=== PATIENT | male | born 1965 | race Caucasian/White ===

== ENCOUNTER 2016-11-26 08:43 | Emergency (ER) | payer MEDICARE, MEDICAID ==
[~2016-11-26] VITALS: Ht 182.9 cm; Wt 66.1 kg
[~2016-11-26 08:43] MED LIST: OXYC-229 PO
[2016-11-26] MEDS ORDERED: OXYcodone/APAP 5/325MG TABLET ONE (09:44)
[2016-11-26] MEDS ORDERED: OXYcodone/APAP 5/325MG TABLET PO ONE (10:00)
[2016-11-26] MEDS ORDERED: ONDANSETRON ODT 4 MG ONE (10:02)
[2016-11-26 10:07] VITALS: BP 120/80
[2016-11-26] MEDS ORDERED: ONDANSETRON ODT 4 MG PO ONE (10:30)
== END 2016-11-26 11:27 | disposition home or self-care (01) ==
LOC: ED 09:08
DX: M48.32 Traumatic spondylopathy, cervical region (principal); M54.2 Cervicalgia; M54.9 Dorsalgia, unspecified; M25.559 Pain in unspecified hip; G89.29 Other chronic pain; Z85.9 Personal history of malignant neoplasm, unspecified; F17.210 Nicotine dependence, cigarettes, uncomplicated; F15.10 Other stimulant abuse, uncomplicated
CPT/HCPCS: 72125; 99284; Q0162

== ENCOUNTER 2016-12-24 09:44 | Emergency (ER) | payer MEDICARE, MEDICAID ==
[~2016-12-24] VITALS: Ht 182.9 cm; Wt 65.0 kg
[2016-12-24] MEDS ORDERED: SODIUM CHLORIDE 0.9% 1,000 ML IV ONE (09:59)
[2016-12-24] MEDS ORDERED: SODIUM CHLORIDE 0.9% 1,000ML IVBOLUS ONE (10:00)
[2016-12-24] MEDS ORDERED: ONDANSETRON 2MG/ML, 2ML IVPush ONE (10:00)
[2016-12-24] MEDS ORDERED: ASPIRIN 81 MG TABLET CHEW PO ONE (10:00)
[2016-12-24] MEDS ORDERED: ASPIRIN 81 MG TABLET CHEW ONE (10:46)
[2016-12-24] MEDS ORDERED: ONDANSETRON 2MG/ML, 2ML ONE (10:47)
[2016-12-24 10:55] VITALS: BP 106/64
[2016-12-24 10:58] LABS: BLOOD UREA NITROGEN 13 mg/dL (7-18)
[2016-12-24 11:05] LABS: IS PT STATUS REG ER OR PRE ER? YES
== END 2016-12-24 11:24 | disposition left against medical advice (07) ==
LOC: ED 10:03
DX: R42 Dizziness and giddiness (principal); M19.90 Unspecified osteoarthritis, unspecified site; B18.2 Chronic viral hepatitis C; F17.200 Nicotine dependence, unspecified, uncomplicated; Z85.9 Personal history of malignant neoplasm, unspecified
CPT/HCPCS: 36415; 71010; 80048; 80307; 82040; 84484; 85025; 93005; 96361; 96374; 99285; J2405; J7030

== ENCOUNTER 2016-12-25 18:13 | Emergency (ER) | payer MEDICARE, MEDICAID ==
[~2016-12-25] VITALS: Ht 182.9 cm; Wt 71.3 kg
[2016-12-25 18:15] VITALS: BP 120/75
[2016-12-25] MEDS ORDERED: CIPROFLOXACIN 500 MG TABLET ONE (21:13)
== END 2016-12-25 19:04 | disposition left against medical advice (07) ==
LOC: ED 18:58
DX: Z00.00 Encounter for general adult medical examination without abnormal findings (principal); E11.9 Type 2 diabetes mellitus without complications; M54.9 Dorsalgia, unspecified; G89.29 Other chronic pain; B18.2 Chronic viral hepatitis C; F17.200 Nicotine dependence, unspecified, uncomplicated
CPT/HCPCS: 99281

== ENCOUNTER 2017-02-05 17:40 | Emergency (ER) | payer MEDICARE, MEDICAID ==
[~2017-02-05] VITALS: Ht 182.9 cm; Wt 63.8 kg
[2017-02-05] MEDS ORDERED: ONDANSETRON 2MG/ML, 2ML IVPush ONE (18:30)
[2017-02-05] MEDS ORDERED: SODIUM CHLORIDE FLUSH 10ML SYR IVF ONE (18:30)
[2017-02-05] MEDS ORDERED: SODIUM CHLORIDE 0.9% 1,000ML IVBOLUS ONE (18:30)
[2017-02-05] MEDS ORDERED: ONDANSETRON 2MG/ML, 2ML ONE (18:35)
[2017-02-05 19:03] LABS: IS PT STATUS REG ER OR PRE ER? YES
[2017-02-05 19:29] LABS: ASPARTATE AMINO TRANSFERASE 56 U/L (15-37); BLOOD UREA NITROGEN 10 mg/dL (7-18)
[2017-02-05 19:51] VITALS: BP 113/72
== END 2017-02-05 20:49 | disposition home or self-care (01) ==
LOC: ED 20:00
DX: R19.7 Diarrhea, unspecified (principal); R05 Cough; I10 Essential (primary) hypertension; Z87.891 Personal history of nicotine dependence
CPT/HCPCS: 36415; 71010; 76700; 80053; 83690; 84484; 85025; 93005; 96361; 96374; 99285; J2405; J7030

== ENCOUNTER 2017-02-06 04:23 | Emergency (ER) | payer MEDICARE, MEDICAID ==
[~2017-02-06] VITALS: Ht 182.9 cm; Wt 64.9 kg
[2017-02-06 04:24] VITALS: BP 117/75
== END 2017-02-06 05:53 | disposition left against medical advice (07) ==
LOC: ED 05:50
DX: R42 Dizziness and giddiness (principal); Z53.21 Procedure and treatment not carried out due to patient leaving prior to being seen by health care provider
CPT/HCPCS: 93005

== ENCOUNTER 2017-03-22 12:12 | Emergency (ER) | payer MEDICARE, MEDICAID ==
[~2017-03-22] VITALS: Ht 180.3 cm; Wt 59.0 kg
[2017-03-22] MEDS ORDERED: OXYC-302 PO (12:26)
[2017-03-22 12:59] LABS: HEMOGLOBIN 13.8 g/dL (13.7-18.0); WHITE BLOOD COUNT 5.7 x10^3/uL (3.4-10)
[2017-03-22] MEDS ORDERED: ASPIRIN 81 MG TABLET CHEW PO ONE (13:00)
[2017-03-22] MEDS ORDERED: NITROGLYCERIN SINGLE TAB 0.4 MG SL PRN (13:00)
[2017-03-22] MEDS ORDERED: SODIUM CHLORIDE FLUSH 10ML SYR IVF ONE (13:00)
[2017-03-22 13:11] LABS: BLOOD UREA NITROGEN 6 mg/dL (7-18)
[2017-03-22] MEDS ORDERED: OMNIPAQUE 350 MG/ML, 100ML BOTTLE ONE (13:44)
[2017-03-22] MEDS ORDERED: NITROGLYCERIN SINGLE TAB 0.4 MG SL ONE (14:05)
[2017-03-22 14:11] VITALS: BP 107/58
== END 2017-03-22 14:50 | disposition left against medical advice (07) ==
LOC: ED 14:06
DX: R07.2 Precordial pain (principal); E11.9 Type 2 diabetes mellitus without complications; I10 Essential (primary) hypertension; I25.2 Old myocardial infarction; M19.90 Unspecified osteoarthritis, unspecified site
CPT/HCPCS: 36415; 71010; 74177; 80047; 80048; 82040; 82565; 83880; 84484; 85025; 85610; 85730; 93005; 99285; Q9967

== ENCOUNTER 2017-07-28 06:32 | Emergency (ER) | payer MEDICARE, MEDICAID ==
[~2017-07-28] VITALS: Ht 182.9 cm; Wt 67.0 kg
[~2017-07-28 06:32] MED LIST changes: -OXYC-229 PO; +OXYC-302 PO; +OXYC-307 PO
[2017-07-28 07:22] LABS: HEMATOCRIT 47.1 % (39.2-51.8); HEMOGLOBIN 15.5 g/dL (13.7-18.0); WHITE BLOOD COUNT 9.7 x10^3/uL (3.4-10)
[2017-07-28 07:32] LABS: BLOOD UREA NITROGEN 15 mg/dL (7-18)
== END 2017-07-28 09:31 | disposition home or self-care (01) ==
LOC: ED 07:35
DX: L01.01 Non-bullous impetigo (principal); B00.1 Herpesviral vesicular dermatitis; I25.2 Old myocardial infarction; Z86.19 Personal history of other infectious and parasitic diseases
CPT/HCPCS: 36415; 80048; 82040; 85025; 99284

== ENCOUNTER 2017-10-15 19:46 | Emergency (ER) | payer MEDICARE, MEDICAID ==
[~2017-10-15] VITALS: Ht 175.3 cm; Wt 66.4 kg
[2017-10-15 19:57] VITALS: BP 105/72
== END 2017-10-15 23:12 | disposition home or self-care (01) ==
LOC: ED 23:06
DX: S62.634A Displaced fracture of distal phalanx of right ring finger, initial encounter for closed fracture (principal); S61.214A Laceration without foreign body of right ring finger without damage to nail, initial encounter; I10 Essential (primary) hypertension; E11.9 Type 2 diabetes mellitus without complications; I25.2 Old myocardial infarction; W19.XXXA Unspecified fall, initial encounter; Y93.89 Activity, other specified; Y92.89 Other specified places as the place of occurrence of the external cause; Y99.8 Other external cause status
CPT/HCPCS: 29125; 99284

== ENCOUNTER 2017-10-20 00:42 | Emergency (ER) | payer MEDICARE, MEDICAID ==
[~2017-10-20] VITALS: Ht 167.6 cm; Wt 64.6 kg
[2017-10-20 00:44] VITALS: BP 120/70
[2017-10-20] MEDS ORDERED: KETOROLAC 30 MG/1 ML IM ONE (01:30)
[2017-10-20] MEDS ORDERED: KETOROLAC 30 MG/1 ML ONE (01:34)
[2017-10-20] MEDS ORDERED: BACITRACIN ZINC OINT 500U/GM, 0.9 GM ONE (01:43)
== END 2017-10-20 02:03 | disposition home or self-care (01) ==
LOC: ED 01:46
DX: S61.215A Laceration without foreign body of left ring finger without damage to nail, initial encounter (principal); I10 Essential (primary) hypertension; E11.9 Type 2 diabetes mellitus without complications; F17.210 Nicotine dependence, cigarettes, uncomplicated; I25.2 Old myocardial infarction; Z88.5 Allergy status to narcotic agent; W19.XXXA Unspecified fall, initial encounter; Y93.89 Activity, other specified; Y92.89 Other specified places as the place of occurrence of the external cause; Y99.8 Other external cause status
CPT/HCPCS: 29130; 96372; 99283; J1885

== ENCOUNTER 2017-11-04 18:39 | Emergency (ER) | payer MEDICARE, MEDICAID ==
[~2017-11-04] VITALS: Ht 180.3 cm; Wt 64.7 kg
[2017-11-04 18:41] VITALS: BP 113/72
[2017-11-04] MEDS ORDERED: IBUPROFEN 200 MG TABLET ONE (19:22)
[2017-11-04] MEDS ORDERED: IBUPROFEN 200 MG TABLET PO ONE (19:30)
== END 2017-11-04 20:03 | disposition home or self-care (01) ==
LOC: ED 19:05
DX: S62.634A Displaced fracture of distal phalanx of right ring finger, initial encounter for closed fracture (principal); W00.0XXA Fall on same level due to ice and snow, initial encounter; Y93.89 Activity, other specified; Y99.8 Other external cause status; Y92.89 Other specified places as the place of occurrence of the external cause
CPT/HCPCS: 29130; 99284

== ENCOUNTER 2018-07-10 08:05 | Emergency (ER) | payer MEDICARE, MEDICAID ==
[~2018-07-10] VITALS: Ht 182.9 cm; Wt 59.0 kg
[2018-07-10] MEDS ORDERED: ONDANSETRON 2MG/ML, 2ML IVPush ONE (09:00)
[2018-07-10] MEDS ORDERED: MAALOX/HYOSCYAMINE/LIDOCAINE 45 ML BTL PO ONE (09:00)
[2018-07-10] MEDS ORDERED: MAALOX/HYOSCYAMINE/LIDOCAINE 45 ML BTL ONE (09:11)
[2018-07-10] MEDS ORDERED: ONDANSETRON ODT 4 MG ONE (09:11)
[2018-07-10 09:26] LABS: BASOPHILS # (AUTO) 0.03 x10^3/uL (0-0.1); BASOPHILS % (AUTO) 0 % (0-1); EOSINOPHILS # (AUTO) 0.19 x10^3/uL (0-0.4); EOSINOPHILS % (AUTO) 2 % (1-7); LYMPHOCYTES # (AUTO) 0.92 x10^3/uL (1-3.4); LYMPHOCYTES % (AUTO) 10 % (22-44); MD NO; MEAN CORPUSCULAR HEMOGLOBIN 27.8 pg (27.5-34.5); MEAN CORPUSCULAR HGB CONC 32.6 g/dL (33.2-36.2); MEAN CORPUSCULAR VOLUME 85.4 fL (81-97); MEAN PLATELET VOLUME 8.1 fL (7.4-10.4); MONOCYTES # (AUTO) 0.64 x10^3/uL (0.2-0.8); MONOCYTES % (AUTO) 7 % (2-9); NEUTROPHILS # (AUTO) 7.91 x10^3/uL (1.8-6.8); NEUTROPHILS % (AUTO) 82 % (42-75); PLATELET COUNT 293 x10^3/uL (130-400); RED BLOOD COUNT 5.13 x10^6/uL (4.38-5.82); RED CELL DISTRIBUTION WIDTH 13.8 % (9.4-14.8)
[2018-07-10] MEDS ORDERED: ONDANSETRON ODT 4 MG PO ONE (09:30)
[2018-07-10 09:34] LABS: ALANINE AMINOTRANSFERASE 47 U/L (12-78); ALBUMIN 3.3 g/dL (3.4-5.0); ANION GAP 6 mmol/L (5-15); CALCIUM 7.7 mg/dL (8.5-10.1); CHLORIDE 107 mmol/L (98-107)
[2018-07-10 09:37] LABS: ALKALINE PHOSPHATASE 85 U/L (45-117); BILIRUBIN,TOTAL 0.7 mg/dL (0.2-1.0); CREATININE 0.62 mg/dL (0.7-1.3); TOTAL PROTEIN 6.7 g/dL (6.4-8.2)
[2018-07-10 10:42] LABS: MICROSCOPIC NOT IND
[2018-07-10 10:50] LABS: CULTURE INDICATED? NO
[2018-07-10 12:40] VITALS: BP 120/64
== END 2018-07-10 12:43 | disposition home or self-care (01) ==
LOC: ED 10:47
DX: K29.00 Acute gastritis without bleeding (principal); E11.9 Type 2 diabetes mellitus without complications; I10 Essential (primary) hypertension; I25.2 Old myocardial infarction; F17.200 Nicotine dependence, unspecified, uncomplicated; Z86.19 Personal history of other infectious and parasitic diseases
CPT/HCPCS: 36415; 80053; 81003; 83605; 83690; 85025; 93005; 99284; Q0162

== ENCOUNTER 2018-07-19 07:44 | Emergency (ER) | payer MEDICARE, MEDICAID ==
[~2018-07-19] VITALS: Ht 182.9 cm; Wt 61.4 kg
[2018-07-19 07:46] VITALS: BP 116/77
[2018-07-19] MEDS ORDERED: KETOROLAC 30 MG/1 ML ONE (09:14)
[2018-07-19] MEDS ORDERED: KETOROLAC 30 MG/1 ML IVPush ONE (09:30)
== END 2018-07-19 10:15 | disposition home or self-care (01) ==
LOC: ED 09:42
DX: R07.9 Chest pain, unspecified (principal); R07.1 Chest pain on breathing; R05 Cough; C80.1 Malignant (primary) neoplasm, unspecified; I10 Essential (primary) hypertension; E11.9 Type 2 diabetes mellitus without complications; I25.2 Old myocardial infarction; G89.29 Other chronic pain; M25.552 Pain in left hip; M25.551 Pain in right hip; M54.9 Dorsalgia, unspecified; Z86.19 Personal history of other infectious and parasitic diseases
CPT/HCPCS: 71046; 93005; 96374; 99283; J1885

== ENCOUNTER 2018-09-01 17:19 | Emergency (ER) | payer MEDICARE, MEDICAID ==
[~2018-09-01] VITALS: Ht 182.9 cm; Wt 66.0 kg
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
--- NOTE | 2018-09-01 18:03 | NUR ---
EDMD AT BEDSIDE TO EXPLAIN POC AT THIS TIME.
[2018-09-01 18:23] LABS: BASOPHILS # (AUTO) 0.02 x10^3/uL (0-0.1); BASOPHILS % (AUTO) 0 % (0-1); EOSINOPHILS # (AUTO) 0.22 x10^3/uL (0-0.4); EOSINOPHILS % (AUTO) 4 % (1-7); LYMPHOCYTES # (AUTO) 1.56 x10^3/uL (1-3.4); LYMPHOCYTES % (AUTO) 25 % (22-44); MD NO; MEAN CORPUSCULAR HEMOGLOBIN 28.5 pg (27.5-34.5); MEAN CORPUSCULAR HGB CONC 32.7 g/dL (33.2-36.2); MEAN CORPUSCULAR VOLUME 87.2 fL (81-97); MEAN PLATELET VOLUME 8.6 fL (7.4-10.4); MONOCYTES # (AUTO) 0.62 x10^3/uL (0.2-0.8); MONOCYTES % (AUTO) 10 % (2-9); NEUTROPHILS # (AUTO) 3.76 x10^3/uL (1.8-6.8); NEUTROPHILS % (AUTO) 61 % (42-75); PLATELET COUNT 276 x10^3/uL (130-400); RED CELL DISTRIBUTION WIDTH 16.2 % (9.4-14.8)
[2018-09-01 18:32] LABS: ALBUMIN 3.2 g/dL (3.4-5.0); ANION GAP 9 mmol/L (5-15); CALCIUM 8.5 mg/dL (8.5-10.1); CHLORIDE 108 mmol/L (98-107); CREATININE 0.67 mg/dL (0.7-1.3)
[2018-09-01 18:36] LABS: TROPONIN I < 0.015 ng/mL (0.000-0.045)
--- NOTE | 2018-09-01 18:55 | NUR ---
WHEN EDMD AT BEDSIDE, PT C/O BILATERAL CP. ALL MONITORS IN PLACE NOW. CALL LIGHT WITHIN REACH. NSR ON DATA INTEGRATION DEVELOPER WITHOUT ECTOPY RATE 70'S AT THIS TIME.
--- NOTE | 2018-09-01 20:05 | NUR ---
Patient/Caregiver given discharge instructions and they have confirmed that they understand the instructions. Patient ambulatory with steady gait.
[2018-09-01 20:06] VITALS: BP 120/66
== END 2018-09-01 20:07 | disposition home or self-care (01) ==
LOC: ED 17:28
DX: R07.2 Precordial pain (principal); M19.90 Unspecified osteoarthritis, unspecified site; M54.9 Dorsalgia, unspecified; G89.29 Other chronic pain; I10 Essential (primary) hypertension; E11.9 Type 2 diabetes mellitus without complications; I25.2 Old myocardial infarction; Z86.19 Personal history of other infectious and parasitic diseases
CPT/HCPCS: 36415; 71045; 80048; 82040; 84484; 85025; 93005; 99284

== ENCOUNTER 2018-09-12 16:20 | Emergency (ER) | payer MEDICARE, MEDICAID ==
[~2018-09-12] VITALS: Ht 180.3 cm; Wt 68.5 kg
[2018-09-12 16:31] VITALS: BP 115/75
== END 2018-09-12 17:14 | disposition left against medical advice (07) ==
LOC: ED 17:08
DX: R10.9 Unspecified abdominal pain (principal); R11.2 Nausea with vomiting, unspecified
CPT/HCPCS: 93005; 99283

== ENCOUNTER 2018-09-26 14:32 | Inpatient (IN) | payer MEDICARE, MEDICAID ==
[~2018-09-26] VITALS: Ht 180.3 cm; Wt 62.3 kg
--- NOTE | 2018-09-26 14:58 | NUR ---
PT. ARRIVES BY [facility] WITH C/O CHEST WALL PAIN, SOB AND A COUGH. PT. WAS SEEN AT THE [facility] AND DIAGNOSED WITH PNEUMONIA. PT. DID NOT GET HIS PRESCRIPTIONS FILLED. PT. DOES SMOKE 1.5 PACKS OF CIGARETTES DAILY, HE DRINKS 1 PINT OF WHISKEY AND USES MARIJUANA MULTIPLE TIMES DAILY STATED BY HIM. PT. HAS THE CP MONITOR IN PLACE. IV ACCESS WAS ESTABLISHED IN THE FIELD. PT.'S SIDERAILS ARE UP 2 WITH THE CALL LIGHT IN PLACE. DR. OBREGON IS AT THE BEDSIDE TO EVALUATE THE PT.
[2018-09-26] MEDS ORDERED: ALBUTEROL/IPRATROPIUM 2.5MG/0.5MG, 3 ML NPPB ONE (15:00)
[2018-09-26] MEDS ORDERED: ASPIRIN 81 MG TABLET CHEW PO ONE (15:00)
[2018-09-26] MEDS ORDERED: SODIUM CHLORIDE FLUSH 10ML SYR IVF ONE (15:00)
[2018-09-26] MEDS ORDERED: ASPIRIN 81 MG TABLET CHEW ONE (15:04)
[2018-09-26 15:28] LABS: BASOPHILS # (AUTO) 0.06 x10^3/uL (0-0.1); BASOPHILS % (AUTO) 1 % (0-1); EOSINOPHILS # (AUTO) 0.19 x10^3/uL (0-0.4); EOSINOPHILS % (AUTO) 2 % (1-7); LYMPHOCYTES # (AUTO) 1.25 x10^3/uL (1-3.4); LYMPHOCYTES % (AUTO) 14 % (22-44); MD NO; MEAN CORPUSCULAR HEMOGLOBIN 27.5 pg (27.5-34.5); MEAN CORPUSCULAR HGB CONC 31.7 g/dL (33.2-36.2); MEAN CORPUSCULAR VOLUME 86.7 fL (81-97); MEAN PLATELET VOLUME 8.8 fL (7.4-10.4); MONOCYTES # (AUTO) 0.72 x10^3/uL (0.2-0.8); MONOCYTES % (AUTO) 8 % (2-9); NEUTROPHILS # (AUTO) 6.54 x10^3/uL (1.8-6.8); NEUTROPHILS % (AUTO) 75 % (42-75); PLATELET COUNT 287 x10^3/uL (130-400); RED BLOOD COUNT 5.17 x10^6/uL (4.38-5.82); RED CELL DISTRIBUTION WIDTH 15.8 % (9.4-14.8)
[2018-09-26 15:38] LABS: ALANINE AMINOTRANSFERASE 47 U/L (12-78); ALBUMIN 3.4 g/dL (3.4-5.0); ANION GAP 9 mmol/L (5-15); CALCIUM 8.2 mg/dL (8.5-10.1); CHLORIDE 108 mmol/L (98-107); CREATININE 0.67 mg/dL (0.7-1.3)
[2018-09-26 15:41] LABS: ALKALINE PHOSPHATASE 87 U/L (45-117); BILIRUBIN,TOTAL 0.4 mg/dL (0.2-1.0); TOTAL PROTEIN 6.7 g/dL (6.4-8.2); TROPONIN I < 0.015 ng/mL (0.000-0.045)
--- NOTE | 2018-09-26 15:43 | NUR ---
Igx-[id number]-[phone], Spouse-Mark RuizGwdstl-[phone]
--- NOTE | 2018-09-26 16:04 | NUR ---
PT. REMAINS MONITORED AND IS RESTING AT THIS TIME.
[2018-09-26] MEDS ORDERED: ALBUTEROL/IPRATROPIUM 2.5MG/0.5MG, 3 ML ONE (16:15)
[2018-09-26 16:30] LABS: RAPID INFLUENZA A Negative (Negative); RAPID INFLUENZA B Negative (Negative)
--- NOTE | 2018-09-26 16:56 | NUR ---
PT. REMAINS MONITORED. VSS. PT. HAS NO CONCERNS AT THIS TIME.
--- NOTE | 2018-09-26 18:04 | NUR ---
PT.'S SATS ARE 88% ON ROOM AIR.
[2018-09-26] MEDS ORDERED: SODIUM CHLORIDE FLUSH 10ML SYR IVF PRN (18:30)
--- NOTE | 2018-09-26 19:00 | NUR ---
REPORT GIVEN TO GABRIELA MOSES.
--- NOTE | 2018-09-26 19:02 | NUR ---
Bedside report from julian desir. admitting md at bedside
[2018-09-26] MEDS ORDERED: ENOXAPARIN 40 MG/0.4 ML SQ SCH (19:30)
[2018-09-26] MEDS ORDERED: LORazepam 2 MG/ML, 1ML IVPush PRN (19:30)
[2018-09-26] MEDS ORDERED: ONDANSETRON ODT 4 MG PO PRN (19:30)
[2018-09-26] MEDS ORDERED: ACETAMINOPHEN 325 MG TABLET PO PRN (19:30)
[2018-09-26] MEDS ORDERED: hydrALAzine 20 MG/ML, 1ML IVPush PRN (19:30)
[2018-09-26] MEDS ORDERED: LIDODERM 5% PATCH TD PRN (19:30)
[2018-09-26] MEDS ORDERED: NICOTINE 21 MG/24 HR PATCH.TD24 TD SCH (19:30)
[2018-09-26] MEDS ORDERED: GABAPENTIN 300 MG CAPSULE PO PRN (19:30)
[2018-09-26] MEDS ORDERED: DOCUSATE 100 MG CAPSULE PO PRN (19:30)
--- NOTE | 2018-09-26 20:18 | NUR ---
PT RESTING. PT WAITING FOR ROOM TO BE CLEANED. VSS. CALL LIGHT IN REACH
[2018-09-26 20:35] VITALS: BP 104/65
[2018-09-27 01:22] VITALS: BP 115/69
[2018-09-27] MEDS ORDERED: ALBUTEROL/IPRATROPIUM 2.5MG/0.5MG, 3 ML NPPB PRN (05:00)
[2018-09-27 06:42] LABS: BASOPHILS # (AUTO) 0.02 x10^3/uL (0-0.1); BASOPHILS % (AUTO) 0 % (0-1); EOSINOPHILS % (AUTO) 0 % (1-7); LYMPHOCYTES # (AUTO) 0.98 x10^3/uL (1-3.4); LYMPHOCYTES % (AUTO) 13 % (22-44); MD NO; MEAN CORPUSCULAR HEMOGLOBIN 27.7 pg (27.5-34.5); MEAN CORPUSCULAR HGB CONC 31.7 g/dL (33.2-36.2); MEAN CORPUSCULAR VOLUME 87.5 fL (81-97); MEAN PLATELET VOLUME 8.7 fL (7.4-10.4); MONOCYTES # (AUTO) 0.53 x10^3/uL (0.2-0.8); MONOCYTES % (AUTO) 7 % (2-9); NEUTROPHILS # (AUTO) 5.84 x10^3/uL (1.8-6.8); NEUTROPHILS % (AUTO) 79 % (42-75); PLATELET COUNT 273 x10^3/uL (130-400); RED BLOOD COUNT 5.19 x10^6/uL (4.38-5.82); RED CELL DISTRIBUTION WIDTH 15.8 % (9.4-14.8)
[2018-09-27 06:54] LABS: ANION GAP 6 mmol/L (5-15); CALCIUM 8.2 mg/dL (8.5-10.1); CHLORIDE 105 mmol/L (98-107); CREATININE 0.63 mg/dL (0.7-1.3)
[2018-09-27 07:16] VITALS: BP 120/73
[2018-09-27] MEDS ORDERED: MULTIVITAMINS/MINERALS TABLET PO SCH (09:00)
[2018-09-27] MEDS ORDERED: CHLORDIAZEPOXIDE 25 MG CAPSULE PO PRN ×2 (09:00)
[2018-09-27] MEDS ORDERED: FOLIC ACID 5 MG/ML IM ONE (09:00)
[2018-09-27] MEDS ORDERED: AMOXICILLIN/CLAV 875-125MG TABLET PO SCH (09:00)
[2018-09-27] MEDS ORDERED: CHLORDIAZEPOXIDE 10 MG CAPSULE PO PRN (09:00)
[2018-09-27] MEDS ORDERED: FOLIC ACID 1 MG TABLET PO ONE (10:00)
[2018-09-28] MEDS ORDERED: THIAMINE 100 MG in DEXTROSE 5% 50 ML IVPB SCH (09:00)
== END 2018-09-27 12:35 | disposition left against medical advice (07) | DRG 189 ==
LOC: ED 18:14 → EDIP 18:15 → ED 18:38 → 4EST 20:29
PROVIDERS: ADMIT Hospitalist; ATTEND Hospitalist
DX: J96.01 Acute respiratory failure with hypoxia (principal); J44.1 Chronic obstructive pulmonary disease with (acute) exacerbation; Z53.21 Procedure and treatment not carried out due to patient leaving prior to being seen by health care provider; E11.9 Type 2 diabetes mellitus without complications; E78.5 Hyperlipidemia, unspecified; F10.229 Alcohol dependence with intoxication, unspecified; G89.29 Other chronic pain; Y90.6 Blood alcohol level of 120-199 mg/100 ml; Z96.643 Presence of artificial hip joint, bilateral; I10 Essential (primary) hypertension; I25.2 Old myocardial infarction; Z59.0 Homelessness; Z88.5 Allergy status to narcotic agent
CPT/HCPCS: 36415; 71046; 80048; 80053; 80307; 83605; 83880; 84484; 85025; 87040; 87400; 93005; 94640; 99285; G0378; J1650; J7620; J2060; J7512

== ENCOUNTER 2018-09-27 13:33 | Emergency (ER) | payer MEDICARE, MEDICAID ==
[~2018-09-27] VITALS: Ht 180.3 cm; Wt 71.1 kg
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
--- NOTE | 2018-09-27 15:30 | NUR ---
Provider at bedside.
[2018-09-27 16:39] VITALS: BP 103/62
--- NOTE | 2018-09-27 16:45 | NUR ---
Patient given discharge instructions and they have confirmed that they understand the instructions. Patient ambulatory with steady gait.
== END 2018-09-27 16:48 | disposition home or self-care (01) ==
LOC: ED 13:40
DX: J44.1 Chronic obstructive pulmonary disease with (acute) exacerbation (principal); B34.9 Viral infection, unspecified; Z86.19 Personal history of other infectious and parasitic diseases; I10 Essential (primary) hypertension; E11.9 Type 2 diabetes mellitus without complications; M54.9 Dorsalgia, unspecified; G89.29 Other chronic pain; Z85.9 Personal history of malignant neoplasm, unspecified
CPT/HCPCS: 71045; 93005; 99283

== ENCOUNTER 2018-10-26 17:17 | Emergency (ER) | payer MEDICARE, MEDICAID ==
[~2018-10-26] VITALS: Ht 182.9 cm; Wt 69.5 kg
[2018-10-26 17:21] VITALS: BP 147/87
== END 2018-10-26 18:15 | disposition left against medical advice (07) ==
LOC: ED 17:39
DX: R21 Rash and other nonspecific skin eruption (principal); R11.10 Vomiting, unspecified; J44.9 Chronic obstructive pulmonary disease, unspecified; I25.2 Old myocardial infarction; Z86.19 Personal history of other infectious and parasitic diseases; Z72.9 Problem related to lifestyle, unspecified; Z85.9 Personal history of malignant neoplasm, unspecified; F17.200 Nicotine dependence, unspecified, uncomplicated
CPT/HCPCS: 99281

== ENCOUNTER 2018-11-30 12:10 | Emergency (ER) | payer MEDICARE, MEDICAID ==
[~2018-11-30] VITALS: Ht 182.9 cm; Wt 65.4 kg
[2018-11-30 12:13] VITALS: BP 144/83
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
--- NOTE | 2018-11-30 12:44 | NUR ---
Pt transported on gurney to imaging. All safety measures in place. JACQUE.
--- NOTE | 2018-11-30 13:14 | NUR ---
Pt transported [facility] All safety measures in place.
--- NOTE | 2018-11-30 14:11 | NUR ---
Patient given discharge instructions and they have confirmed that they understand the instructions. Patient ambulatory with steady gait. Pt left with prescription, discharge paperwork, and all personal belongings.
== END 2018-11-30 14:24 | disposition home or self-care (01) ==
LOC: ED 13:30
DX: S16.1XXA Strain of muscle, fascia and tendon at neck level, initial encounter (principal); S40.011A Contusion of right shoulder, initial encounter; S70.02XA Contusion of left hip, initial encounter; J44.9 Chronic obstructive pulmonary disease, unspecified; I25.2 Old myocardial infarction; I10 Essential (primary) hypertension; E11.9 Type 2 diabetes mellitus without complications; F17.200 Nicotine dependence, unspecified, uncomplicated; Z86.19 Personal history of other infectious and parasitic diseases; V79.59XA Passenger on bus injured in collision with other motor vehicles in traffic accident, initial encounter; Y93.89 Activity, other specified; Y92.410 Unspecified street and highway as the place of occurrence of the external cause; Y99.8 Other external cause status
CPT/HCPCS: 72125; 99284

== ENCOUNTER 2018-12-24 21:33 | Emergency (ER) | payer MEDICARE, MEDICAID ==
[~2018-12-24] VITALS: Ht 182.9 cm; Wt 66.7 kg
[2018-12-24 22:14] VITALS: BP 122/74
--- NOTE | 2018-12-24 22:14 | NUR ---
UPON DC PT REQUESTING TO SLEEP IN THE ROOM. PT INFORMED HE CANT SLEEP IN THE ROOM BUT CAN STAY IN THE LOBBY IF HE WOULD LIKE. PT DENIES FURTHER NEEDS.
== END 2018-12-24 22:16 | disposition home or self-care (01) ==
LOC: ED 21:39
DX: M79.642 Pain in left hand (principal); I10 Essential (primary) hypertension; J44.9 Chronic obstructive pulmonary disease, unspecified; I25.10 Atherosclerotic heart disease of native coronary artery without angina pectoris; E11.9 Type 2 diabetes mellitus without complications
CPT/HCPCS: 99281

== ENCOUNTER 2019-01-13 14:43 | Emergency (ER) | payer MEDICARE, MEDICAID ==
[~2019-01-13] VITALS: Ht 182.9 cm; Wt 63.3 kg
--- NOTE | 2019-01-13 15:18 | NUR ---
PT TO ROOM FROM LOBBY AT THIS TIME.
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
--- NOTE | 2019-01-13 15:22 | NUR ---
RECEIVED BEDSIDE REPORT FROM AURELIA MARTIN.
[2019-01-13] MEDS ORDERED: ONDANSETRON ODT 4 MG ONE (15:28)
[2019-01-13] MEDS ORDERED: ONDANSETRON ODT 4 MG PO ONE (15:30)
[2019-01-13 15:32] VITALS: BP 121/75
--- NOTE | 2019-01-13 15:33 | NUR ---
PT STATES "MY LAST DRINK WAS ABOUT 12 NOON. IT WAS A COUPLE OF SHOTS OF WHISKEY." PT PLACED ON CONT PULSE OX,NIBP.
--- NOTE | 2019-01-13 15:41 | NUR ---
PER SUP, PT ELOPED. PT LEFT ROOM WITH ALL PERSONAL BELONGINGS.
[2019-01-13] MEDS ORDERED: HYDROcodone/APAP 5/325 TABLET PO ONE (16:00)
[2019-01-13] MEDS ORDERED: DIPH,PERTUSS(ACELL),TET VAC/PF 0.5 ML IM-VACC ONE (16:00)
== END 2019-01-13 15:43 | disposition left against medical advice (07) ==
LOC: ED 15:37
DX: S00.432A Contusion of left ear, initial encounter (principal); M25.512 Pain in left shoulder; I10 Essential (primary) hypertension; J44.9 Chronic obstructive pulmonary disease, unspecified; I25.2 Old myocardial infarction; E11.9 Type 2 diabetes mellitus without complications; M19.90 Unspecified osteoarthritis, unspecified site; X58.XXXA Exposure to other specified factors, initial encounter; Y93.89 Activity, other specified; Y92.89 Other specified places as the place of occurrence of the external cause; Y99.8 Other external cause status
CPT/HCPCS: 99283

== ENCOUNTER 2019-05-23 20:24 | Inpatient (IN) | payer MEDICARE, MEDICAID ==
[~2019-05-23] VITALS: Ht 182.9 cm; Wt 68.5 kg
[~2019-05-23 20:24] MED LIST changes: +ALBU18HF INH
--- NOTE | 2019-05-23 21:53 | NUR ---
bladder scan revealed about 125ml
--- NOTE | 2019-05-23 21:55 | NUR ---
pt presents after leaving AMA earlier today. pt c/o constipation, last bm around 0300 this morning. pt states he has been unable to urinate. last urination was this morning around 1000. pt to be admitted.
--- NOTE | 2019-05-23 22:15 | NUR ---
report given to thang dangelo
[2019-05-23 22:53] VITALS: BP 122/80
[2019-05-24] MEDS ORDERED: ONDANSETRON 2MG/ML, 2ML IVPush PRN
[2019-05-24] MEDS ORDERED: hydrALAzine 20 MG/ML, 1ML IVPush PRN
[2019-05-24] MEDS ORDERED: DOCUSATE 100 MG CAPSULE PO PRN
[2019-05-24] MEDS ORDERED: LIDODERM 5% PATCH TD PRN
[2019-05-24] MEDS: NICOTINE 21 MG/24 HR PATCH.TD24 TD SCH ×2 (00:03→21:03)
[2019-05-24 00:55] VITALS: BP 112/68
[2019-05-24 05:32] LABS: BASOPHILS # (AUTO) 0.04 x10^3/uL (0-0.1); BASOPHILS % (AUTO) 1 % (0-1); EOSINOPHILS # (AUTO) 0.18 x10^3/uL (0-0.4); EOSINOPHILS % (AUTO) 3 % (1-7); LYMPHOCYTES % (AUTO) 17 % (22-44); MD NO; MEAN CORPUSCULAR HEMOGLOBIN 28.8 pg (27.5-34.5); MEAN CORPUSCULAR HGB CONC 31.9 g/dL (33.2-36.2); MEAN CORPUSCULAR VOLUME 90.2 fL (81-97); MEAN PLATELET VOLUME 8.9 fL (7.4-10.4); MONOCYTES # (AUTO) 0.84 x10^3/uL (0.2-0.8); MONOCYTES % (AUTO) 13 % (2-9); NEUTROPHILS # (AUTO) 4.37 x10^3/uL (1.8-6.8); NEUTROPHILS % (AUTO) 67 % (42-75); PLATELET COUNT 221 x10^3/uL (130-400); RED BLOOD COUNT 5.07 x10^6/uL (4.38-5.82); RED CELL DISTRIBUTION WIDTH 15.9 % (9.4-14.8)
[2019-05-24 05:43] LABS: ANION GAP 5 mmol/L (5-15); CALCIUM 8.2 mg/dL (8.5-10.1); CHLORIDE 108 mmol/L (98-107); CREATININE 0.61 mg/dL (0.7-1.3)
[2019-05-24 07:33] VITALS: BP 127/72
[2019-05-24] MEDS: LORazepam 1MG TABLET PO PRN ×3 (08:24→21:02)
[2019-05-24] MEDS ORDERED: MOVIPREP POWDER 1 PREP KIT PO ONE ×2 (11:55→15:00)
[2019-05-24 12:42] VITALS: BP 136/80
[2019-05-24] MEDS ORDERED: LORazepam 1MG TABLET PO PRN ×4 (17:00)
[2019-05-24] MEDS ORDERED: LORazepam 0.5MG TABLET PO PRN (17:00)
[2019-05-24] MEDS: OXYcodone/APAP 5/325MG TABLET PO PRN (17:57)
[2019-05-24 20:09] VITALS: BP 145/92
[2019-05-25] MEDS: OXYcodone/APAP 5/325MG TABLET PO PRN ×2 (00:48→11:49)
[2019-05-25 01:38] VITALS: BP 128/85
[2019-05-25 05:01] LABS: BASOPHILS # (AUTO) 0.03 x10^3/uL (0-0.1); BASOPHILS % (AUTO) 1 % (0-1); EOSINOPHILS # (AUTO) 0.21 x10^3/uL (0-0.4); EOSINOPHILS % (AUTO) 3 % (1-7); LYMPHOCYTES # (AUTO) 1.24 x10^3/uL (1-3.4); LYMPHOCYTES % (AUTO) 18 % (22-44); MD NO; MEAN CORPUSCULAR HGB CONC 31.7 g/dL (33.2-36.2); MEAN CORPUSCULAR VOLUME 91.4 fL (81-97); MEAN PLATELET VOLUME 8.9 fL (7.4-10.4); MONOCYTES # (AUTO) 0.98 x10^3/uL (0.2-0.8); MONOCYTES % (AUTO) 14 % (2-9); NEUTROPHILS # (AUTO) 4.34 x10^3/uL (1.8-6.8); NEUTROPHILS % (AUTO) 64 % (42-75); PLATELET COUNT 214 x10^3/uL (130-400); RED BLOOD COUNT 4.87 x10^6/uL (4.38-5.82); RED CELL DISTRIBUTION WIDTH 16.3 % (9.4-14.8)
[2019-05-25 05:08] LABS: ANION GAP 6 mmol/L (5-15); CALCIUM 8.1 mg/dL (8.5-10.1); CHLORIDE 110 mmol/L (98-107)
[2019-05-25 05:12] LABS: ALANINE AMINOTRANSFERASE 56 U/L (12-78); ALKALINE PHOSPHATASE 58 U/L (45-117); BILIRUBIN,TOTAL 0.8 mg/dL (0.2-1.0); CREATININE 0.65 mg/dL (0.7-1.3)
[2019-05-25] MEDS ORDERED: PROPOFOL 10 MG/ML, 20ML ONE (09:25)
[2019-05-25 10:28] VITALS: BP 119/76
[2019-05-25] MEDS ORDERED: ALBU18HF INH (10:52)
== END 2019-05-25 12:40 | disposition left against medical advice (07) | DRG 394 ==
LOC: ED 21:50 → EDIP 21:55 → ED 22:00 → 3N 23:00
PROVIDERS: ADMIT Family Medicine; ATTEND Family Medicine
PROC: 0DJD8ZZ Inspection of Lower Intestinal Tract, Via Natural or Artificial Opening Endoscopic (ICD-10-PCS; principal; 2019-05-25 08:30)
DX: Q43.8 Other specified congenital malformations of intestine (principal); K56.7 Ileus, unspecified; F10.239 Alcohol dependence with withdrawal, unspecified; E87.2 Acidosis; E11.9 Type 2 diabetes mellitus without complications; E78.5 Hyperlipidemia, unspecified; F17.200 Nicotine dependence, unspecified, uncomplicated; G89.29 Other chronic pain; I10 Essential (primary) hypertension; I25.2 Old myocardial infarction; J44.9 Chronic obstructive pulmonary disease, unspecified; Z59.0 Homelessness; Z96.643 Presence of artificial hip joint, bilateral; Z53.29 Procedure and treatment not carried out because of patient's decision for other reasons; Z88.8 Allergy status to other drugs, medicaments and biological substances; K70.10 Alcoholic hepatitis without ascites; B18.2 Chronic viral hepatitis C; I27.20 Pulmonary hypertension, unspecified; Y90.9 Presence of alcohol in blood, level not specified; K52.9 Noninfective gastroenteritis and colitis, unspecified; Y90.8 Blood alcohol level of 240 mg/100 ml or more; M25.559 Pain in unspecified hip; Z85.830 Personal history of malignant neoplasm of bone; Z88.5 Allergy status to narcotic agent; Z79.51 Long term (current) use of inhaled steroids; Z79.84 Long term (current) use of oral hypoglycemic drugs
CPT/HCPCS: 36415; 74177; 80048; 80053; 80069; 80307; 81001; 83605; 83735; 85025; 86592; 86705; 86706; 87340; 87389; 87491; 90686; 93005; 99285; G0378; J2405; J2704; J3010; Q9967; J7030

== ENCOUNTER 2019-06-27 02:47 | Emergency (ER) | payer MEDICARE, MEDICAID ==
[~2019-06-27] VITALS: Ht 182.9 cm; Wt 65.0 kg
[2019-06-27] MEDS ORDERED: NEOSPORIN OINT. PKT 1 PACKET ONE (03:59)
[2019-06-27 04:18] VITALS: BP 103/51
== END 2019-06-27 04:20 | disposition home or self-care (01) ==
LOC: ED 03:11
DX: S00.30XA Unspecified superficial injury of nose, initial encounter (principal); J01.00 Acute maxillary sinusitis, unspecified; I10 Essential (primary) hypertension; J44.9 Chronic obstructive pulmonary disease, unspecified; I25.2 Old myocardial infarction; X58.XXXA Exposure to other specified factors, initial encounter; Y93.89 Activity, other specified; Y92.89 Other specified places as the place of occurrence of the external cause; Y99.8 Other external cause status
CPT/HCPCS: 99283

== ENCOUNTER 2019-07-05 08:17 | Emergency (ER) | payer MEDICARE, MEDICAID ==
[~2019-07-05] VITALS: Ht 182.9 cm; Wt 65.3 kg
--- NOTE | 2019-07-05 08:57 | NUR ---
PT HERE WITH C/O NASAL CONGESTION. PT STATES HE WAS SEEN A FEW DAYS AGO HERE AND IT IS NOT GETTING ANY BETTER. PT AAO X 4, NAD, ROOM AIR, PT WEARING MASK, CALL LIGHT WITHIN REACH, PULSE OX ON CONTINUOUS MONITORING.
[2019-07-05] MEDS ORDERED: SODIUM CHLORIDE FLUSH 10ML SYR IVF ONE (09:30)
--- NOTE | 2019-07-05 09:48 | NUR ---
PA ORDERED CT WITH CONTRAST, ATTEMPT X 2 PIV ESTABLISHMENT UNSUCCESSFUL. PT STATES 13 YEAR HX IV DRUG USE AND "THEY CAN ONLY GET AN IV IN MY NECK." SOURCING ENGINEER UPDATED, PT AMBULATORY TO ROOM 4, REPORT GIVEN TO AURELIA BURTON. CARE TRANSFERRED. PT ATTACHED TO PULSE OX AND BP CUFF, CALL LIGHT WITHIN REACH.
--- NOTE | 2019-07-05 10:29 | NUR ---
PATIENT ON CONTINUOUS SPO2 AT 96%, CYCLE BP Q1HR. CALL LIGHT IN REACH. DENIES NEEDS AT THIS TIME. WAITING FOR CT.
--- NOTE | 2019-07-05 11:05 | NUR ---
PT IN CT.
--- NOTE | 2019-07-05 11:15 | NUR ---
PT BACK FROM CT. PLACED BACK ON CONTINUOUS SPO2 AT 96%, CYCLE BP Q1HR. NEEDS ADDRESSED.
[2019-07-05 11:16] VITALS: BP 109/68
[2019-07-05] MEDS ORDERED: OMNIPAQUE 350 MG/ML, 75ML BOTTLE ONE (11:22)
--- NOTE | 2019-07-05 12:18 | NUR ---
CARE FOR DC PROVIDED. PT AMB TO BR, GAIT STEADY. IV DC'D WITH CANNULA INTACT. REVIEWED DC INSTRUCTIONS WITH PT, UNDERSTANDING VERBALIZED. PT LEFT AMB, GAIT STEADY.
== END 2019-07-05 12:21 | disposition home or self-care (01) ==
LOC: ED 09:20
DX: J01.00 Acute maxillary sinusitis, unspecified (principal); E11.9 Type 2 diabetes mellitus without complications; J44.9 Chronic obstructive pulmonary disease, unspecified; I25.2 Old myocardial infarction; I10 Essential (primary) hypertension; Z85.830 Personal history of malignant neoplasm of bone; Z88.8 Allergy status to other drugs, medicaments and biological substances; Z88.5 Allergy status to narcotic agent
CPT/HCPCS: 70487; 99284; Q9967

== ENCOUNTER 2019-07-22 22:30 | Emergency (ER) | payer MEDICARE, MEDICAID ==
[~2019-07-22] VITALS: Ht 172.7 cm; Wt 80.0 kg
[2019-07-22 22:41] VITALS: BP 136/91
--- NOTE | 2019-07-22 22:45 | NUR ---
BIB [facility] WITH C/O BLOOD IN STOOL, PT DECANED BEFORE TRIAGE PT REPORTED BED BUGS
[2019-07-22] MEDS ORDERED: hydrOXyzine 50MG TABLET ONE (23:02)
--- NOTE | 2019-07-22 23:34 | NUR ---
RESTING IN BED IN NAD AT THIS TIME
--- NOTE | 2019-07-23 01:18 | NUR ---
Patient/Caregiver given discharge instructions and they have confirmed that they understand the instructions. Patient ambulatory with steady gait.
--- NOTE | 2019-07-23 01:18 | NUR ---
PT PROVIDED WITH A CAB VOUCHER TO AN ADDRESS IN [place]
== END 2019-07-23 01:20 | disposition home or self-care (01) ==
LOC: ED 23:59
DX: K62.5 Hemorrhage of anus and rectum (principal); R05 Cough; R50.9 Fever, unspecified; I10 Essential (primary) hypertension; E11.9 Type 2 diabetes mellitus without complications; J44.9 Chronic obstructive pulmonary disease, unspecified; I25.2 Old myocardial infarction; F17.200 Nicotine dependence, unspecified, uncomplicated
CPT/HCPCS: 71045; 93005; 99283; Q0177

== ENCOUNTER 2019-07-29 23:16 | Emergency (ER) | payer MEDICARE, MEDICAID ==
[~2019-07-29] VITALS: Ht 177.8 cm; Wt 85.0 kg
[2019-07-29 23:26] VITALS: BP 107/76
--- NOTE | 2019-07-29 23:27 | NUR ---
erp evaluating pt, awaiting orders
[2019-07-30] MEDS ORDERED: DIPHENHYDRAMINE 25 MG CAPSULE PO ONE
[2019-07-30] MEDS ORDERED: DEXAMETHASONE 4 MG TABLET PO ONE
[2019-07-30] MEDS ORDERED: DIPHENHYDRAMINE 25 MG CAPSULE ONE (00:06)
[2019-07-30] MEDS ORDERED: DEXAMETHASONE 4 MG TABLET ONE (00:06)
== END 2019-07-30 00:17 | disposition home or self-care (01) ==
LOC: ED 23:45
DX: L24.9 Irritant contact dermatitis, unspecified cause (principal); J32.0 Chronic maxillary sinusitis; B97.89 Other viral agents as the cause of diseases classified elsewhere; E11.9 Type 2 diabetes mellitus without complications; I25.2 Old myocardial infarction; I10 Essential (primary) hypertension; J44.9 Chronic obstructive pulmonary disease, unspecified; F17.200 Nicotine dependence, unspecified, uncomplicated
CPT/HCPCS: 99283; Q0163

== ENCOUNTER 2019-09-02 23:15 | Emergency (ER) | payer MEDICARE, MEDICAID ==
[~2019-09-02] VITALS: Ht 182.9 cm; Wt 5.9 kg
[2019-09-03 00:27] LABS: BASOPHILS % (AUTO) 1 % (0-1); EOSINOPHILS # (AUTO) 0.06 x10^3/uL (0-0.4); EOSINOPHILS % (AUTO) 1 % (1-7); LYMPHOCYTES # (AUTO) 1.22 x10^3/uL (1-3.4); LYMPHOCYTES % (AUTO) 12 % (22-44); MD NO; MEAN CORPUSCULAR HEMOGLOBIN 29.1 pg (27.5-34.5); MEAN CORPUSCULAR VOLUME 88.3 fL (81-97); MEAN PLATELET VOLUME 8.8 fL (7.4-10.4); MONOCYTES # (AUTO) 1.09 x10^3/uL (0.2-0.8); MONOCYTES % (AUTO) 11 % (2-9); NEUTROPHILS % (AUTO) 75 % (42-75); PLATELET COUNT 240 x10^3/uL (130-400); RED BLOOD COUNT 5.05 x10^6/uL (4.38-5.82); RED CELL DISTRIBUTION WIDTH 15.8 % (9.4-14.8)
[2019-09-03 00:44] LABS: ALANINE AMINOTRANSFERASE 85 U/L (12-78); ALBUMIN 4.1 g/dL (3.4-5.0); ANION GAP 14 mmol/L (5-15); CALCIUM 8.9 mg/dL (8.5-10.1); CHLORIDE 102 mmol/L (98-107)
[2019-09-03 00:46] LABS: ALKALINE PHOSPHATASE 68 U/L (45-117); BILIRUBIN,TOTAL 2.8 mg/dL (0.2-1.0)
[2019-09-03 01:20] VITALS: BP 159/88
--- NOTE | 2019-09-03 01:20 | NUR ---
pt given a bus pass per request.
== END 2019-09-03 02:33 | disposition home or self-care (01) ==
LOC: ED 09-03 02:22
DX: J02.8 Acute pharyngitis due to other specified organisms (principal); B97.89 Other viral agents as the cause of diseases classified elsewhere; M79.10 Myalgia, unspecified site; R11.10 Vomiting, unspecified; H92.09 Otalgia, unspecified ear; J44.9 Chronic obstructive pulmonary disease, unspecified; E11.9 Type 2 diabetes mellitus without complications; I10 Essential (primary) hypertension; I25.2 Old myocardial infarction; M19.90 Unspecified osteoarthritis, unspecified site
CPT/HCPCS: 36415; 71046; 80053; 83690; 85025; 87081; 87880; 99284

== ENCOUNTER 2019-09-19 02:17 | Emergency (ER) | payer MEDICARE, MEDICAID ==
[~2019-09-19] VITALS: Ht 182.9 cm; Wt 69.6 kg
[2019-09-19] MEDS ORDERED: DIAZEPAM 5 MG/ML, 2ML ONE (02:56)
[2019-09-19] MEDS ORDERED: SODIUM CHLORIDE 0.9% 1,000ML IVBOLUS ONE (03:00)
[2019-09-19] MEDS ORDERED: DIAZEPAM 5 MG/ML, 2ML IV ONE (03:00)
[2019-09-19 03:10] LABS: BASOPHILS % (AUTO) 0 % (0-1); EOSINOPHILS # (AUTO) 0.27 x10^3/uL (0-0.4); EOSINOPHILS % (AUTO) 3 % (1-7); LYMPHOCYTES # (AUTO) 0.39 x10^3/uL (1-3.4); LYMPHOCYTES % (AUTO) 5 % (22-44); MD NO; MEAN CORPUSCULAR HEMOGLOBIN 29.2 pg (27.5-34.5); MEAN CORPUSCULAR HGB CONC 33.1 g/dL (33.2-36.2); MEAN CORPUSCULAR VOLUME 88.3 fL (81-97); MEAN PLATELET VOLUME 8.1 fL (7.4-10.4); MONOCYTES # (AUTO) 0.68 x10^3/uL (0.2-0.8); MONOCYTES % (AUTO) 8 % (2-9); NEUTROPHILS % (AUTO) 84 % (42-75); PLATELET COUNT 219 x10^3/uL (130-400); RED BLOOD COUNT 5.06 x10^6/uL (4.38-5.82); RED CELL DISTRIBUTION WIDTH 16.3 % (9.4-14.8)
[2019-09-19 03:22] LABS: ALBUMIN 3.6 g/dL (3.4-5.0); ANION GAP 6 mmol/L (5-15); CALCIUM 9.4 mg/dL (8.5-10.1); CHLORIDE 106 mmol/L (98-107)
[2019-09-19 03:27] LABS: CREATININE 0.81 mg/dL (0.7-1.3); TROPONIN I < 0.015 ng/mL (0.000-0.045)
--- NOTE | 2019-09-19 03:53 | NUR ---
PT BEGAN CRYING CT TECHS CAME INTO ROOM, PT STATES HE REFUSES CT UNTIL HE GETS "PAIN MEDICATION THAT WORKS." RN ABLE TO CONVINCE PT TO GET SCAN. WILL REASSESS WHEN PT RETURNS
[2019-09-19] MEDS ORDERED: OMNIPAQUE 350 MG/ML, 100ML BOTTLE ONE (04:13)
--- NOTE | 2019-09-19 04:34 | NUR ---
pt resting at this time, tearful upon awakening.
[2019-09-19 04:51] VITALS: BP 147/78
[2019-09-19] MEDS ORDERED: KETOROLAC 30 MG/1 ML IM ONE (05:00)
[2019-09-19] MEDS ORDERED: KETOROLAC 30 MG/1 ML ONE (05:08)
--- NOTE | 2019-09-19 05:21 | NUR ---
pt ambulated without assistance to the restroom
== END 2019-09-19 05:19 | disposition home or self-care (01) ==
LOC: ED 02:56
DX: S16.1XXA Strain of muscle, fascia and tendon at neck level, initial encounter (principal); E11.9 Type 2 diabetes mellitus without complications; J44.9 Chronic obstructive pulmonary disease, unspecified; I25.2 Old myocardial infarction; I27.20 Pulmonary hypertension, unspecified; I11.9 Hypertensive heart disease without heart failure; R00.0 Tachycardia, unspecified; R06.02 Shortness of breath; F17.200 Nicotine dependence, unspecified, uncomplicated; Z86.19 Personal history of other infectious and parasitic diseases; Z85.22 Personal history of malignant neoplasm of nasal cavities, middle ear, and accessory sinuses; X58.XXXA Exposure to other specified factors, initial encounter; Y93.89 Activity, other specified; Y92.89 Other specified places as the place of occurrence of the external cause; Y99.8 Other external cause status
CPT/HCPCS: 36415; 71275; 72125; 80048; 82040; 84484; 85025; 93005; 96372; 96374; 99284; J1885; J3360; J7030; Q9967

== ENCOUNTER 2019-10-02 02:28 | Emergency (ER) | payer MEDICARE, MEDICAID ==
[~2019-10-02] VITALS: Ht 172.7 cm; Wt 66.5 kg
--- NOTE | 2019-10-02 03:30 | NUR ---
Pt sleeping, no acute distress noted, equal chest rise, vss.
--- NOTE | 2019-10-02 04:39 | NUR ---
Pt awake, asked for blanket and something to eat.
--- NOTE | 2019-10-02 04:48 | NUR ---
Pt up to bathroom, pt reports dizziness while sitting up on gurney, pt has unsteady gait and unable to keep balance without assistance.
--- NOTE | 2019-10-02 05:48 | NUR ---
Pt sleeping, no acute distressed noted, equal chest rise, vss.
--- NOTE | 2019-10-02 06:35 | NUR ---
Pt sleeping in [facility], no acute distress noted.
--- NOTE | 2019-10-02 06:50 | NUR ---
Bedside report givent to Angelica MOSES.
[2019-10-02 07:05] VITALS: BP 99/63
--- NOTE | 2019-10-02 07:19 | NUR ---
DISCHARGE INSTRUCTIONS REVIEWED. BUS PASS PROVIDED.
== END 2019-10-02 07:29 | disposition home or self-care (01) ==
LOC: ED 05:24
DX: F10.120 Alcohol abuse with intoxication, uncomplicated (principal); Z72.9 Problem related to lifestyle, unspecified; Y90.9 Presence of alcohol in blood, level not specified; E11.9 Type 2 diabetes mellitus without complications; J44.9 Chronic obstructive pulmonary disease, unspecified; I25.2 Old myocardial infarction; I11.9 Hypertensive heart disease without heart failure
CPT/HCPCS: 99285

== ENCOUNTER 2019-10-03 22:05 | Emergency (ER) | payer MEDICARE, MEDICAID ==
[~2019-10-03] VITALS: Ht 177.8 cm; Wt 66.5 kg
[2019-10-03 23:08] VITALS: BP 126/81
--- NOTE | 2019-10-03 23:59 | NUR ---
PT AMBULATORY WITHOUT ASSISST, REQUESTING BUS PASS, STATES HE IS READY TO GO.
== END 2019-10-04 00:43 | disposition home or self-care (01) ==
LOC: ED 23:00
DX: F10.220 Alcohol dependence with intoxication, uncomplicated (principal); Y90.9 Presence of alcohol in blood, level not specified; F17.210 Nicotine dependence, cigarettes, uncomplicated
CPT/HCPCS: 99283

== ENCOUNTER 2019-10-04 05:00 | Emergency (ER) | payer MEDICARE, MEDICAID ==
[~2019-10-04] VITALS: Ht 177.8 cm; Wt 66.7 kg
[2019-10-04 05:04] VITALS: BP 126/78
== END 2019-10-04 06:10 | disposition home or self-care (01) ==
LOC: ED 06:04
DX: F10.220 Alcohol dependence with intoxication, uncomplicated (principal); Z72.9 Problem related to lifestyle, unspecified; Y90.9 Presence of alcohol in blood, level not specified
CPT/HCPCS: 99283

== ENCOUNTER 2019-10-30 16:39 | Emergency (ER) | payer MEDICARE, MEDICAID ==
[~2019-10-30] VITALS: Ht 182.9 cm; Wt 68.8 kg
[2019-10-30] MEDS ORDERED: ACETAMINOPHEN 325 MG TABLET PO ONE (17:30)
[2019-10-30] MEDS ORDERED: ACETAMINOPHEN 325 MG TABLET ONE (17:56)
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
--- NOTE | 2019-10-30 18:27 | NUR ---
DISCHARGE INSTRUCTIONS GIVEN TO PATIENT. PT VERBALIZES UNDERSTANDING OF ALL INSTRUCTIONS AND FOLLOW UP. PT AMBULATED OUT OF ED WITHOUT DIFF.
[2019-10-30 18:36] VITALS: BP 126/77
== END 2019-10-30 18:39 | disposition home or self-care (01) ==
LOC: ED 18:30
DX: S00.33XA Contusion of nose, initial encounter (principal); R51 Headache; J44.9 Chronic obstructive pulmonary disease, unspecified; G89.29 Other chronic pain; I10 Essential (primary) hypertension; I25.2 Old myocardial infarction; Y04.8XXA Assault by other bodily force, initial encounter; Y93.89 Activity, other specified; Y92.098 Other place in other non-institutional residence as the place of occurrence of the external cause; Y99.8 Other external cause status
CPT/HCPCS: 70160; 99283

== ENCOUNTER 2019-11-08 15:53 | Emergency (ER) | payer MEDICARE, MEDICAID ==
[~2019-11-08] VITALS: Ht 180.3 cm; Wt 66.9 kg
[2019-11-08 15:55] VITALS: BP 107/67
[2019-11-08] MEDS ORDERED: LIDOCAINE-MPF 1%, 5ML ONE (16:10)
--- NOTE | 2019-11-08 16:10 | NUR ---
LIDOCAINE GIVEN TO DR MILLS FOR ADMINISTRATION
--- NOTE | 2019-11-08 16:17 | NUR ---
PA BS FOR I&D
[2019-11-08] MEDS ORDERED: LIDOCAINE-MPF 1%, 5ML INFIL ONE (16:30)
== END 2019-11-08 16:50 | disposition home or self-care (01) ==
LOC: ED 16:07
DX: L03.012 Cellulitis of left finger (principal)
CPT/HCPCS: 99283

== ENCOUNTER 2019-11-30 14:04 | Emergency (ER) | payer MEDICARE, MEDICAID ==
[~2019-11-30] VITALS: Ht 182.9 cm; Wt 67.0 kg
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
[2019-11-30 15:29] VITALS: BP 116/74
[2019-11-30 15:29] LABS: RAPID INFLUENZA A Negative (Negative); RAPID INFLUENZA B Negative (Negative)
--- NOTE | 2019-11-30 15:30 | NUR ---
PT RESTING IN [facility]. WATCHING TV. VSS. NAD
== END 2019-11-30 16:22 | disposition home or self-care (01) ==
LOC: ED 14:12
DX: J06.9 Acute upper respiratory infection, unspecified (principal); J44.9 Chronic obstructive pulmonary disease, unspecified; F17.200 Nicotine dependence, unspecified, uncomplicated; R94.31 Abnormal electrocardiogram [ECG] [EKG]; I25.2 Old myocardial infarction; R00.0 Tachycardia, unspecified; Z86.19 Personal history of other infectious and parasitic diseases; Z85.22 Personal history of malignant neoplasm of nasal cavities, middle ear, and accessory sinuses
CPT/HCPCS: 71045; 87400; 93005; 99285

== ENCOUNTER 2019-12-21 16:15 | Emergency (ER) | payer MEDICARE, MEDICAID ==
[~2019-12-21] VITALS: Ht 182.9 cm; Wt 75.0 kg
[2019-12-21] MEDS ORDERED: LIDOCAINE-MPF 1%, 5ML INFIL ONE (16:30)
[2019-12-21] MEDS ORDERED: DIPH,PERTUSS(ACELL),TET VAC/PF 0.5 ML IM-VACC ONE ×2 (16:30→16:34)
[2019-12-21] MEDS ORDERED: LIDOCAINE-MPF 1%, 5ML ONE (16:34)
--- NOTE | 2019-12-21 16:41 | NUR ---
BREAK RN: PATIENT MEDICATED PER EMAR, TOLERATED WELL. ANIL DE LEON TO ROOM TO NUMB LACERATION FOR IRRIGATION AND SUTURES
[2019-12-21 16:52] LABS: BASOPHILS # (AUTO) 0.04 x10^3/uL (0-0.1); BASOPHILS % (AUTO) 1 % (0-1); EOSINOPHILS # (AUTO) 0.43 x10^3/uL (0-0.4); EOSINOPHILS % (AUTO) 6 % (1-7); LYMPHOCYTES # (AUTO) 1.94 x10^3/uL (1-3.4); LYMPHOCYTES % (AUTO) 29 % (22-44); MD NO; MEAN CORPUSCULAR HEMOGLOBIN 27.8 pg (27.5-34.5); MEAN CORPUSCULAR HGB CONC 32.6 g/dL (33.2-36.2); MEAN CORPUSCULAR VOLUME 85.4 fL (81-97); MEAN PLATELET VOLUME 8.7 fL (7.4-10.4); MONOCYTES # (AUTO) 0.67 x10^3/uL (0.2-0.8); MONOCYTES % (AUTO) 10 % (2-9); NEUTROPHILS # (AUTO) 3.71 x10^3/uL (1.8-6.8); NEUTROPHILS % (AUTO) 55 % (42-75); PLATELET COUNT 258 x10^3/uL (130-400); RED BLOOD COUNT 4.94 x10^6/uL (4.38-5.82); RED CELL DISTRIBUTION WIDTH 16.3 % (9.4-14.8)
[2019-12-21 17:01] LABS: ALBUMIN 3.5 g/dL (3.4-5.0); ANION GAP 7 mmol/L (5-15); CALCIUM 8.3 mg/dL (8.5-10.1); CHLORIDE 107 mmol/L (98-107); CREATININE 0.67 mg/dL (0.7-1.3)
[2019-12-21 17:24] VITALS: BP 121/79
== END 2019-12-21 17:33 | disposition left against medical advice (07) ==
LOC: ED 16:46
DX: S61.211A Laceration without foreign body of left index finger without damage to nail, initial encounter (principal); R11.2 Nausea with vomiting, unspecified; R06.02 Shortness of breath; Z72.9 Problem related to lifestyle, unspecified; F10.29 Alcohol dependence with unspecified alcohol-induced disorder; J44.9 Chronic obstructive pulmonary disease, unspecified; I25.2 Old myocardial infarction; W23.0XXA Caught, crushed, jammed, or pinched between moving objects, initial encounter; Y93.89 Activity, other specified; Y92.009 Unspecified place in unspecified non-institutional (private) residence as the place of occurrence of the external cause; Y99.8 Other external cause status; Y90.9 Presence of alcohol in blood, level not specified
CPT/HCPCS: 12041; 36415; 71045; 80048; 82040; 85025; 90471; 90715; 99284

== ENCOUNTER 2020-03-01 08:58 | Emergency (ER) | payer MEDICARE, MEDICAID ==
[~2020-03-01] VITALS: Ht 182.9 cm; Wt 64.3 kg
[2020-03-01 09:09] VITALS: BP 123/85
[2020-03-01] MEDS ORDERED: LIDOCAINE-MPF 1%, 5ML INFIL ONE (09:30)
--- NOTE | 2020-03-01 10:39 | NUR ---
NO ANSWER IN LOBBY
--- NOTE | 2020-03-01 11:19 | NUR ---
NO ANSWER IN LOBBY
== END 2020-03-01 11:27 | disposition left against medical advice (07) ==
LOC: ED 11:16
DX: L02.512 Cutaneous abscess of left hand (principal)
CPT/HCPCS: 99281

== ENCOUNTER 2020-03-01 13:26 | Emergency (ER) | payer MEDICARE, MEDICAID ==
[~2020-03-01] VITALS: Ht 182.9 cm; Wt 90.0 kg
[2020-03-01 13:30] VITALS: BP 126/84
[2020-03-01] MEDS ORDERED: LIDOCAINE-MPF 1%, 5ML INFIL ONE (14:00)
[2020-03-01] MEDS ORDERED: LIDOCAINE-MPF 1%, 5ML ONE (14:55)
--- NOTE | 2020-03-01 14:55 | NUR ---
PT PRESENTS TO ED WITH C/O LEFT WRIST PAIN S/P GLF. PT WAS SEEN IN THIS ED THIS AM FOR GENERALIZED ITCHINESS. NO RASH OR BUGS NOTED TO PT, PT HAS SCABS THROUGHOUT. HELEN CUEVA IS AT BEDSIDE AT THIS TIME TO PERFORM I&D OF ABCESS TO LEFT HAND. PT GIVEN SNACKS WITH HELEN OK.
== END 2020-03-01 16:03 | disposition home or self-care (01) ==
LOC: ED 14:33
DX: S66.513A Strain of intrinsic muscle, fascia and tendon of left middle finger at wrist and hand level, initial encounter (principal); L02.512 Cutaneous abscess of left hand; J44.9 Chronic obstructive pulmonary disease, unspecified; I25.2 Old myocardial infarction; F17.200 Nicotine dependence, unspecified, uncomplicated; Z85.22 Personal history of malignant neoplasm of nasal cavities, middle ear, and accessory sinuses; W18.30XA Fall on same level, unspecified, initial encounter; Y93.89 Activity, other specified; Y92.89 Other specified places as the place of occurrence of the external cause; Y99.8 Other external cause status
CPT/HCPCS: 10060; 99283

== ENCOUNTER 2020-03-08 02:06 | Emergency (ER) | payer MEDICARE, MEDICAID ==
[~2020-03-08] VITALS: Ht 180.3 cm; Wt 65.6 kg
[2020-03-08 02:09] VITALS: BP 130/91
[2020-03-27] MEDS ORDERED: INHALER INH (17:25)
[2020-03-29] MEDS ORDERED: AMOX1TAB64 PO (07:12)
[2020-03-29] MEDS ORDERED: THIA100T67 PO (07:12)
[2020-03-29] MEDS ORDERED: FOLI-17 PO (07:12)
[2020-03-29] MEDS ORDERED: DOXY100T PO (07:12)
== END 2020-03-08 03:31 | disposition home or self-care (01) ==
LOC: ED 02:30
DX: L02.512 Cutaneous abscess of left hand (principal); F17.210 Nicotine dependence, cigarettes, uncomplicated; G89.29 Other chronic pain; R19.7 Diarrhea, unspecified; Z72.9 Problem related to lifestyle, unspecified; M19.90 Unspecified osteoarthritis, unspecified site; I25.2 Old myocardial infarction; J44.9 Chronic obstructive pulmonary disease, unspecified
CPT/HCPCS: 99281; 99406

== ENCOUNTER 2020-03-19 13:50 | Emergency (ER) | payer MEDICARE, MEDICAID ==
[~2020-03-19] VITALS: Ht 180.3 cm; Wt 59.0 kg
--- NOTE | 2020-03-19 14:07 | NUR ---
PT BIB [facility] FROM [place] AFTER PT ATTEMPTED TO SELF ADMIT FOR DETOX FROM ONE [place] OF WHISKEY PER DAY. PT REPORTS CP FOR 2 WEEKS SO DANIELLE WAS CALLED AT [place]./ BS WAS 90. PT ON MONITOR. CHART UP FOR .
[2020-03-19 14:38] LABS: BASOPHILS # (AUTO) 0.14 x10^3/uL (0-0.1); BASOPHILS % (AUTO) 1 % (0-1); EOSINOPHILS # (AUTO) 0.16 x10^3/uL (0-0.4); EOSINOPHILS % (AUTO) 2 % (1-7); LYMPHOCYTES # (AUTO) 1.66 x10^3/uL (1-3.4); LYMPHOCYTES % (AUTO) 16 % (22-44); MD NO; MEAN CORPUSCULAR HGB CONC 31.6 g/dL (33.2-36.2); MEAN CORPUSCULAR VOLUME 88.5 fL (81-97); MONOCYTES # (AUTO) 1.01 x10^3/uL (0.2-0.8); MONOCYTES % (AUTO) 10 % (2-9); NEUTROPHILS # (AUTO) 7.58 x10^3/uL (1.8-6.8); NEUTROPHILS % (AUTO) 72 % (42-75); PLATELET COUNT 186 x10^3/uL (130-400); RED BLOOD COUNT 5.42 x10^6/uL (4.38-5.82); RED CELL DISTRIBUTION WIDTH 17.3 % (9.4-14.8)
[2020-03-19 14:51] LABS: ALBUMIN 3.7 g/dL (3.4-5.0); ANION GAP 10 mmol/L (5-15); CALCIUM 8.5 mg/dL (8.5-10.1); CHLORIDE 105 mmol/L (98-107); CREATININE 0.67 mg/dL (0.7-1.3)
[2020-03-19 14:54] LABS: TROPONIN I < 0.015 ng/mL (0.000-0.045)
--- NOTE | 2020-03-19 14:59 | NUR ---
CHART UP FOR MD RECHECK. PT AWARE.
--- NOTE | 2020-03-19 15:10 | NUR ---
PT WALKING AROUND THE ROOM, REQUESTING TO LEAVE TO GO TO [place] FOR DETOX. PT ALSO REQUESTING TO CALL HIS MOM. DR. BUCK AWARE AND PT TO BE GIVEN TAXI VOUCHER TO GO TO [place] PER PT REQUEST.
[2020-03-19 15:54] VITALS: BP 127/74
--- NOTE | 2020-03-19 15:55 | NUR ---
PT REFUSED TO WAIT IN THE ER LOBBY OR BY THE CHARGE NURSE STATION FOR TAXI CAB PROVIDED AND WANTED TO LEAVE TO SMOKE. PT REPORTS SMOKING 2 PACKS OF CIGARETTES A DAY. PT INFORMED THAT IF HE WANTED RIDE TO [place] HE HAD TO WAIT FOR THE CAB AT THE ER ENTRANCE.
== END 2020-03-19 15:59 | disposition home or self-care (01) ==
LOC: ED 14:12
DX: F10.220 Alcohol dependence with intoxication, uncomplicated (principal); R07.89 Other chest pain; M19.90 Unspecified osteoarthritis, unspecified site; J44.9 Chronic obstructive pulmonary disease, unspecified; I25.2 Old myocardial infarction; I11.9 Hypertensive heart disease without heart failure; Y90.0 Blood alcohol level of less than 20 mg/100 ml
CPT/HCPCS: 36415; 71045; 80048; 80307; 82040; 84484; 85025; 93005; 99285

== ENCOUNTER 2020-03-20 13:44 | Emergency (ER) | payer MEDICARE, MEDICAID ==
[~2020-03-20] VITALS: Ht 180.3 cm; Wt 50.0 kg
--- NOTE | 2020-03-20 13:56 | NUR ---
PT REPORTS CHEST DISCOMFORT X2 DAYS, WAS SEEN IN ER YESTERDAY. ALSO C/O COUGH. PLACED CARDIAC AND VITAL SIGNS MONITORS. FALL PRECAUTIONS IN PLACE, AND CALL LIGHT WITHIN REACH.
--- NOTE | 2020-03-20 14:32 | NUR ---
XRAY AT BEDSIDE.
--- NOTE | 2020-03-20 14:53 | NUR ---
PT RESTING ON GURNEY WATCHING TV IN NAD, VSS. CALL LIGHT WITHIN REACH.
[2020-03-20 14:57] LABS: ALANINE AMINOTRANSFERASE 48 U/L (12-78); ALBUMIN 3.4 g/dL (3.4-5.0); ANION GAP 9 mmol/L (5-15); BASOPHILS # (AUTO) 0.05 x10^3/uL (0-0.1); BASOPHILS % (AUTO) 0 % (0-1); CALCIUM 8.2 mg/dL (8.5-10.1); CHLORIDE 103 mmol/L (98-107); CREATININE 0.64 mg/dL (0.7-1.3); EOSINOPHILS % (AUTO) 1 % (1-7); LYMPHOCYTES # (AUTO) 1.85 x10^3/uL (1-3.4); LYMPHOCYTES % (AUTO) 14 % (22-44); MEAN CORPUSCULAR HEMOGLOBIN 28.6 pg (27.5-34.5); MEAN CORPUSCULAR HGB CONC 32.5 g/dL (33.2-36.2); MEAN CORPUSCULAR VOLUME 87.8 fL (81-97); MEAN PLATELET VOLUME 8.4 fL (7.4-10.4); MONOCYTES # (AUTO) 1.03 x10^3/uL (0.2-0.8); MONOCYTES % (AUTO) 8 % (2-9); NEUTROPHILS # (AUTO) 9.97 x10^3/uL (1.8-6.8); NEUTROPHILS % (AUTO) 77 % (42-75); PLATELET COUNT 181 x10^3/uL (130-400); RED BLOOD COUNT 5.14 x10^6/uL (4.38-5.82); RED CELL DISTRIBUTION WIDTH 16.8 % (9.4-14.8)
[2020-03-20 14:58] LABS: MD NO
[2020-03-20 15:02] LABS: ALKALINE PHOSPHATASE 75 U/L (45-117); BILIRUBIN,TOTAL 0.9 mg/dL (0.2-1.0); TOTAL PROTEIN 7.6 g/dL (6.4-8.2); TROPONIN I < 0.015 ng/mL (0.000-0.045)
--- NOTE | 2020-03-20 15:34 | NUR ---
PT REQUESTING FOOD, PROVIDED SNACK. VSS.
[2020-03-20 15:48] VITALS: BP 148/77
== END 2020-03-20 16:43 | disposition home or self-care (01) ==
LOC: ED 14:25
DX: R07.89 Other chest pain (principal); F15.20 Other stimulant dependence, uncomplicated; R50.9 Fever, unspecified; Z72.9 Problem related to lifestyle, unspecified; J44.9 Chronic obstructive pulmonary disease, unspecified; I25.2 Old myocardial infarction
CPT/HCPCS: 36415; 71045; 80053; 84484; 85025; 93005; 99285

== ENCOUNTER 2020-04-24 11:13 | Emergency (ER) | payer MEDICARE, MEDICAID ==
[~2020-04-24] VITALS: Ht 180.3 cm; Wt 60.0 kg
[~2020-04-24 11:13] MED LIST changes: +AMOX1TAB64 PO; +DOXY100T PO; +FOLI-17 PO; +INHALER INH; +THIA100T67 PO
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
[2020-04-24] MEDS ORDERED: DIPH,PERTUSS(ACELL),TET VAC/PF 0.5 ML IM-VACC ONE ×2 (11:30→11:34)
--- NOTE | 2020-04-24 11:37 | NUR ---
[place] police called
[2020-04-24] MEDS ORDERED: NEOSPORIN OINT. PKT 1 PACKET ONE (11:48)
--- NOTE | 2020-04-24 11:51 | NUR ---
BREAK RN- PT TO IMAGING.
[2020-04-24 12:05] VITALS: BP 101/72
--- NOTE | 2020-04-24 12:05 | NUR ---
BREAK RN- [employer] OFFICER AT BEDSIDE
== END 2020-04-24 12:46 | disposition home or self-care (01) ==
LOC: ED 11:30
DX: S02.2XXA Fracture of nasal bones, initial encounter for closed fracture (principal); R51 Headache; M54.2 Cervicalgia; J44.9 Chronic obstructive pulmonary disease, unspecified; W22.8XXA Striking against or struck by other objects, initial encounter; Y93.89 Activity, other specified; Y92.410 Unspecified street and highway as the place of occurrence of the external cause; Y99.8 Other external cause status
CPT/HCPCS: 70450; 70486; 72125; 90471; 90715; 99285

== ENCOUNTER 2020-05-23 16:36 | Emergency (ER) | payer MEDICARE, MEDICAID ==
[~2020-05-23] VITALS: Ht 182.9 cm; Wt 68.0 kg
[2020-05-23 16:44] VITALS: BP 117/80
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
== END 2020-05-23 18:26 | disposition home or self-care (01) ==
LOC: ED 18:00
DX: R05 Cough (principal); Z20.828 Contact with and (suspected) exposure to other viral communicable diseases; J02.9 Acute pharyngitis, unspecified; R06.02 Shortness of breath; I25.2 Old myocardial infarction; J44.9 Chronic obstructive pulmonary disease, unspecified; M19.90 Unspecified osteoarthritis, unspecified site; F17.210 Nicotine dependence, cigarettes, uncomplicated
CPT/HCPCS: 36415; 71045; 87635; 99284

== ENCOUNTER 2020-06-03 19:35 | Emergency (ER) | payer MEDICARE, MEDICAID ==
[~2020-06-03] VITALS: Ht 182.9 cm; Wt 72.6 kg
[2020-06-03 20:20] LABS: BASOPHILS % (AUTO) 1 % (0-1); EOSINOPHILS % (AUTO) 3 % (1-7); LYMPHOCYTES % (AUTO) 28 % (22-44); MEAN CORPUSCULAR HEMOGLOBIN 28.6 pg (27.5-34.5); MEAN CORPUSCULAR HGB CONC 32.2 g/dL (33.2-36.2); MEAN PLATELET VOLUME 8.2 fL (7.4-10.4); MONOCYTES % (AUTO) 11 % (2-9); NEUTROPHILS % (AUTO) 56 % (42-75); PLATELET COUNT 202 x10^3/uL (130-400); RED BLOOD COUNT 4.62 x10^6/uL (4.38-5.82); RED CELL DISTRIBUTION WIDTH 17.2 % (9.4-14.8)
[2020-06-03 20:29] LABS: ALANINE AMINOTRANSFERASE 94 U/L (12-78); ALBUMIN 3.9 g/dL (3.4-5.0); ANION GAP 8 mmol/L (5-15); CALCIUM 8.1 mg/dL (8.5-10.1); CHLORIDE 109 mmol/L (98-107); CREATININE 0.65 mg/dL (0.7-1.3); MD NO
[2020-06-03 20:33] LABS: ALKALINE PHOSPHATASE 99 U/L (45-117); BILIRUBIN,TOTAL 0.5 mg/dL (0.2-1.0); TROPONIN I < 0.015 ng/mL (0.000-0.045)
[2020-06-03 21:40] VITALS: BP 148/88
--- NOTE | 2020-06-03 21:40 | NUR ---
Pt ambulatory at discharge. Pt given taxi vouchure to [place] for safe departure.
== END 2020-06-03 22:10 | disposition home or self-care (01) ==
LOC: ED 21:40
DX: R07.89 Other chest pain (principal); F10.10 Alcohol abuse, uncomplicated; F15.10 Other stimulant abuse, uncomplicated; R94.31 Abnormal electrocardiogram [ECG] [EKG]; J44.9 Chronic obstructive pulmonary disease, unspecified; I25.2 Old myocardial infarction; F17.200 Nicotine dependence, unspecified, uncomplicated; Y90.9 Presence of alcohol in blood, level not specified
CPT/HCPCS: 36415; 71045; 80053; 84484; 85025; 93005; 99285

== ENCOUNTER 2020-06-08 00:29 | Emergency (ER) | payer MEDICARE, MEDICAID ==
[~2020-06-08] VITALS: Ht 182.9 cm; Wt 68.4 kg
[2020-06-08] MEDS ORDERED: ONDANSETRON 2MG/ML, 2ML ONE (00:58)
[2020-06-08] MEDS ORDERED: LORazepam 2 MG/ML, 1ML ONE (00:59)
[2020-06-08] MEDS ORDERED: ONDANSETRON 2MG/ML, 2ML IVPush ONE (01:00)
[2020-06-08] MEDS ORDERED: LORazepam 2 MG/ML, 1ML IVPush ONE (01:00)
[2020-06-08] MEDS ORDERED: SODIUM CHLORIDE 0.9% 1,000ML IVBOLUS ONE (01:00)
[2020-06-08 01:35] LABS: BASOPHILS % (AUTO) 0 % (0-1); EOSINOPHILS % (AUTO) 0 % (1-7); LYMPHOCYTES % (AUTO) 6 % (22-44); MEAN CORPUSCULAR HGB CONC 31.7 g/dL (33.2-36.2); MEAN PLATELET VOLUME 9.3 fL (7.4-10.4); MONOCYTES % (AUTO) 11 % (2-9); NEUTROPHILS % (AUTO) 83 % (42-75); PLATELET COUNT 163 x10^3/uL (130-400); RED BLOOD COUNT 4.54 x10^6/uL (4.38-5.82); RED CELL DISTRIBUTION WIDTH 16.6 % (9.4-14.8)
[2020-06-08 01:42] LABS: ALBUMIN 4.1 g/dL (3.4-5.0); ANION GAP 16 mmol/L (5-15); CALCIUM 9.3 mg/dL (8.5-10.1); CHLORIDE 103 mmol/L (98-107); SALICYLATE LEVEL 2.4 mg/dL (2.8-20.0)
[2020-06-08 01:43] LABS: MD NO
[2020-06-08 01:45] LABS: ALANINE AMINOTRANSFERASE 85 U/L (12-78); ALKALINE PHOSPHATASE 79 U/L (45-117); CREATININE 1.03 mg/dL (0.7-1.3); TOTAL PROTEIN 7.6 g/dL (6.4-8.2)
--- NOTE | 2020-06-08 02:06 | NUR ---
Pt is less agitated, tremors have improved with Ativan dose. WCTM.
--- NOTE | 2020-06-08 02:20 | NUR ---
Danika RN: assisted Primary RN with care during lunch break. pt sleeping. IV infusing. no apparent distress
--- NOTE | 2020-06-08 02:50 | NUR ---
RN went to discharge pt. Pt is drowsy from ativan. Pt is not safe for discharge at this time. RN will reassess
[2020-06-08 03:37] VITALS: BP 115/62
--- NOTE | 2020-06-08 03:52 | NUR ---
Pt recovering from ativan dose. Pt dressed and stood up at bedside and reported feeling dizziness and drowsiness. Pt reports he is taking the bus home. RN feels that pt is not safe for discharge at this point. Will reassess shortly.
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
== END 2020-06-08 04:53 | disposition home or self-care (01) ==
LOC: ED 02:37
DX: R11.2 Nausea with vomiting, unspecified (principal); F15.222 Other stimulant dependence with intoxication with perceptual disturbance; F41.9 Anxiety disorder, unspecified; Z72.9 Problem related to lifestyle, unspecified; R00.0 Tachycardia, unspecified; R42 Dizziness and giddiness; J44.9 Chronic obstructive pulmonary disease, unspecified; I25.2 Old myocardial infarction; F17.200 Nicotine dependence, unspecified, uncomplicated
CPT/HCPCS: 36415; 80053; 80307; 85025; 93005; 96361; 96374; 96375; 99284; J2060; J2405; J7030

== ENCOUNTER 2020-07-29 13:41 | Emergency (ER) | payer MEDICARE, MEDICAID ==
[~2020-07-29] VITALS: Ht 180.3 cm; Wt 79.5 kg
[2020-07-29 14:49] VITALS: BP 116/73
--- NOTE | 2020-07-29 15:08 | NUR ---
REPORT FROM AURELIA RODRIGEZ. PT C/O ACHING CP AND ABDOMINAL DISTENSION FOLLOW GLF YESTERDAY. PT ALSO C/O SOB X1 DAY. HX OF 2PPD TOBACCO. PT CHANGED INTO GOWN, HEALTH INFORMATION ASSISTANT ATTACHED, BP AND SPO2 IN PLACE. SIDE RAILS UP, CALL LIGHT IN REACH.
--- NOTE | 2020-07-29 15:09 | NUR ---
MARLENE PT'S [facility] [phone] TO BE CALLED PER PT REQUEST.
[2020-07-29] MEDS ORDERED: ASPIRIN 81 MG TABLET CHEW PO ONE (16:00)
--- NOTE | 2020-07-29 16:05 | NUR ---
PT CAME OUT OF ROOM DRESSED, DEMANDING CAB VOUCHER. DISCUSSION WITH PT REGARDING TESTS ORDERED AND WHETHER HE STILL WANTS TO BE EVALUATED FOR HIS COMPLAINTS. PT DENIES WANTING TO BE EVALUATED. PT DIRECTED TO PHONE HE CAN USE. PT USED PHONE, THEN BACK TO ROOM AND OUT AGAIN TO SHOUT AND MULTIPLE RNS. ERMD AWARE OF PLAN FOR AMA. UPON ENTRY TO ROOM FOR AMA FORM, PT NO LONGER PRESENT.
== END 2020-07-29 16:13 | disposition left against medical advice (07) ==
LOC: ED 16:07
DX: R07.89 Other chest pain (principal); R50.9 Fever, unspecified; R11.2 Nausea with vomiting, unspecified; R06.02 Shortness of breath; I10 Essential (primary) hypertension; J44.9 Chronic obstructive pulmonary disease, unspecified; I25.2 Old myocardial infarction; G89.29 Other chronic pain; M19.90 Unspecified osteoarthritis, unspecified site; F17.200 Nicotine dependence, unspecified, uncomplicated; Z85.9 Personal history of malignant neoplasm, unspecified
CPT/HCPCS: 93005; 99283

== ENCOUNTER 2021-02-18 17:44 | Emergency (ER) | payer MEDICARE, MEDICAID ==
[~2021-02-18] VITALS: Ht 180.3 cm; Wt 79.0 kg
[~2021-02-18 17:44] MED LIST changes: -FOLI-17 PO; +FOLI1TAB32 PO; -OXYC-302 PO; -OXYC-307 PO; +OXYC-380 PO; +OXYC1TAB14 PO
--- NOTE | 2021-02-18 17:59 | NUR ---
PT BIB EMS. PT IN GOWN IN [facility] AND PLACED ON , CARDIAC AND VS MONITORS. PT VSS. PT ADMITS TO DRINKING "A LOT" OF ALCOHOL TODAY, BUT DENIES HOW MUCH. PT AAO X 4 WITH SLURRED SPEECH. NEURO INTACT. AWAITING ERP AT THIS TIME FOR PT HISTORY AND ASSESSMENT. PT HAS CALL LIGHT WITHIN REACH.
[2021-02-18 18:41] VITALS: BP 110/79
--- NOTE | 2021-02-18 19:41 | NUR ---
PT WOKE UP AND PULLED OFF MONITORS AND ELOPED. UNABLE TO REPEAT VS. AURELIA WALTON, WAS ABLE TO D/C PT PIV PRIOR TO LEAVING THE FACILITY.
== END 2021-02-18 19:45 | disposition left against medical advice (07) ==
LOC: ED 18:30
DX: R07.9 Chest pain, unspecified (principal); Z53.21 Procedure and treatment not carried out due to patient leaving prior to being seen by health care provider
CPT/HCPCS: 93005; 99283

== ENCOUNTER 2021-02-28 14:43 | Emergency (ER) | payer MEDICARE, MEDICAID ==
[~2021-02-28] VITALS: Ht 175.3 cm; Wt 66.9 kg
[2021-02-28] MEDS ORDERED: SODIUM CHLORIDE 0.9% 1,000ML IVBOLUS ONE (15:30)
[2021-02-28] MEDS ORDERED: SODIUM CHLORIDE FLUSH 10ML SYR IVF ONE (15:30)
[2021-02-28] MEDS ORDERED: ONDANSETRON 2MG/ML, 2ML IVPush ONE (15:30)
[2021-02-28 15:50] LABS: BASOPHILS % (AUTO) 1 % (0-1); EOSINOPHILS % (AUTO) 7 % (1-7); LYMPHOCYTES % (AUTO) 24 % (22-44); MEAN CORPUSCULAR HEMOGLOBIN 28.4 pg (27.5-34.5); MEAN CORPUSCULAR HGB CONC 32.3 g/dL (33.2-36.2); MEAN PLATELET VOLUME 9.2 fL (7.4-10.4); MONOCYTES % (AUTO) 11 % (2-9); NEUTROPHILS % (AUTO) 57 % (42-75); PLATELET COUNT 172 x10^3/uL (130-400); RED BLOOD COUNT 5.16 x10^6/uL (4.38-5.82); RED CELL DISTRIBUTION WIDTH 15.5 % (9.4-14.8)
[2021-02-28 15:51] LABS: ALANINE AMINOTRANSFERASE 137 U/L (12-78); ALBUMIN 3.6 g/dL (3.4-5.0); ANION GAP 6 mmol/L (5-15); CALCIUM 8.5 mg/dL (8.5-10.1); CHLORIDE 107 mmol/L (98-107); CREATININE 0.81 mg/dL (0.7-1.3)
[2021-02-28 15:53] LABS: ALKALINE PHOSPHATASE 81 U/L (45-117); BILIRUBIN,TOTAL 1.2 mg/dL (0.2-1.0); TOTAL PROTEIN 7.3 g/dL (6.4-8.2)
--- NOTE | 2021-02-28 15:56 | NUR ---
PT IN HOSPITAL GOWN. BLOOD CULTURES DRAWN BY LAB. IV PLACED. PT MOTHER AT BEDSIDE. WILL CONTINUE TO MONITOR. VITALS MONITORS ON
[2021-02-28] MEDS ORDERED: ONDANSETRON 2MG/ML, 2ML ONE (16:01)
--- NOTE | 2021-02-28 16:05 | NUR ---
PT IN IMAGING AT THIS TIME
[2021-02-28 16:10] VITALS: BP 123/72
--- NOTE | 2021-02-28 16:40 | NUR ---
ORDERED FLUIDS STARTED. PT GIVEN URINAL TO VOID FOR SAMPLE. PT BECAME UPSET WITH HIS MOTHER SHE WOULD NOT LEAVE FOR HIMTO VOID. PT STARTED THRASHING AROUND IN BED AND YELLING AT MOTHER TO LEAVE ROOM SO HE COULD PEE. PT ABLE TO PROVIDE URINE SAMPLE, URINE WALKED TO LAB.
[2021-02-28 17:16] LABS: MICROSCOPIC AUTO
--- NOTE | 2021-02-28 17:20 | NUR ---
PT MOTHER ASKING FOR CRACKERS. ERP OKAY WITH PT EATING. PT RESTING CALMLY IN BED AT THIS TIME. WILL CONTINUE TO MONITOR.
--- NOTE | 2021-02-28 18:22 | NUR ---
DC WITH INSTRUCT FROM CHARGE DESK
== END 2021-02-28 19:17 ==
LOC: ED 16:00
DX: F10.10 Alcohol abuse, uncomplicated (principal); Y90.0 Blood alcohol level of less than 20 mg/100 ml; B34.9 Viral infection, unspecified; R11.2 Nausea with vomiting, unspecified; R53.1 Weakness; J44.9 Chronic obstructive pulmonary disease, unspecified; I27.0 Primary pulmonary hypertension; I25.2 Old myocardial infarction; F17.210 Nicotine dependence, cigarettes, uncomplicated; Z86.19 Personal history of other infectious and parasitic diseases
CPT/HCPCS: 36415; 71046; 80053; 81001; 83605; 84145; 85025; 87040; 93005; 96361; 96374; 99285; J2405; J7030

== ENCOUNTER 2021-03-26 19:53 | Emergency (ER) | payer MEDICAID, MEDICARE ==
[~2021-03-26] VITALS: Ht 182.9 cm; Wt 64.7 kg
[~2021-03-26 19:53] MED LIST changes: -OXYC-380 PO; +OXYC-501 PO; +OXYC1TAB12 PO; -OXYC1TAB14 PO
--- NOTE | 2021-03-26 20:06 | NUR ---
JARED RN: EKG DONE IN [facility].
[2021-03-26] MEDS ORDERED: IBUPROFEN 600 MG TABLET PO ONE (23:30)
[2021-03-26] MEDS ORDERED: ONDANSETRON ODT 4 MG PO ONE (23:30)
--- NOTE | 2021-03-26 23:36 | NUR ---
LAB ATTEMPTED TO GET BLOOD EARLIER. WAS TOLD BY TECH THAT THEY WANTED ME TO ATTEMPT BLOOD DRAW. ATTEMPTED X 2. PT UNABLE TO STAY STILL DURING DRAW. ANOTHER RN AT BEDSIDE TO ATTEMPT ULTRASOUND.
[2021-03-26] MEDS ORDERED: IBUPROFEN 600 MG TABLET ONE (23:44)
[2021-03-26] MEDS ORDERED: ONDANSETRON ODT 4 MG ONE (23:44)
--- NOTE | 2021-03-26 23:56 | NUR ---
ULTRASOUND IV ESTABLISHED. PT MEDICATED PER EMAR. LABS SENT
[2021-03-27 00:15] LABS: ALANINE AMINOTRANSFERASE 122 U/L (12-78); ALBUMIN 4.1 g/dL (3.4-5.0); ANION GAP 9 mmol/L (5-15); CALCIUM 9.1 mg/dL (8.5-10.1); CHLORIDE 101 mmol/L (98-107); CREATININE 1.11 mg/dL (0.7-1.3)
[2021-03-27 00:20] LABS: ALKALINE PHOSPHATASE 84 U/L (45-117); BILIRUBIN,TOTAL 1.8 mg/dL (0.2-1.0); TOTAL PROTEIN 8.4 g/dL (6.4-8.2); TROPONIN I < 0.015 ng/mL (0.000-0.045)
[2021-03-27 00:48] LABS: BASOPHILS % (AUTO) 1 % (0-1); EOSINOPHILS % (AUTO) 4 % (1-7); LYMPHOCYTES % (AUTO) 19 % (22-44); MEAN CORPUSCULAR HEMOGLOBIN 28.7 pg (27.5-34.5); MEAN CORPUSCULAR HGB CONC 32.9 g/dL (33.2-36.2); MEAN PLATELET VOLUME 8.5 fL (7.4-10.4); MONOCYTES % (AUTO) 15 % (2-9); NEUTROPHILS % (AUTO) 61 % (42-75); PLATELET COUNT 191 x10^3/uL (130-400); RED BLOOD COUNT 5.06 x10^6/uL (4.38-5.82); RED CELL DISTRIBUTION WIDTH 15.2 % (9.4-14.8)
[2021-03-27 01:12] VITALS: BP 123/67
== END 2021-03-27 01:52 | disposition home or self-care (01) ==
LOC: ED 23:59
DX: S20.219A Contusion of unspecified front wall of thorax, initial encounter (principal); M25.50 Pain in unspecified joint; R00.0 Tachycardia, unspecified; J44.9 Chronic obstructive pulmonary disease, unspecified; I10 Essential (primary) hypertension; I25.2 Old myocardial infarction; I27.20 Pulmonary hypertension, unspecified; F17.210 Nicotine dependence, cigarettes, uncomplicated; X58.XXXA Exposure to other specified factors, initial encounter; Y93.89 Activity, other specified; Y92.89 Other specified places as the place of occurrence of the external cause; Y99.8 Other external cause status
CPT/HCPCS: 36415; 71045; 80053; 83690; 84484; 85025; 93005; 99285; 99406; Q0162